=== PATIENT | male | born 2000 | race Caucasian/White ===

== ENCOUNTER 2019-12-08 19:45 | Emergency (ER) | payer OTHER ==
[~2019-12-08] VITALS: Ht 175.3 cm; Wt 59.0 kg
--- NOTE | 2019-12-08 20:39 | NUR ---
PT TO ED WITH RIGHT SIDED WEAKNESS AND PAIN EARLIER TODAY. DENIES WEAKNESS NOW, REPORTS PAIN ON RIGHT SIDE OF NECK, NEURO INTACT. WAS SENT IN BY PRIMARY [facility]ARE FOR STROKE SYMPTOMS, PT DENIES ANY SYMPTOMS EXCEPT PAIN AT THIS TIME. PT TO CT.
[2019-12-08 20:48] VITALS: BP 107/71
--- NOTE | 2019-12-08 20:51 | NUR ---
pt back from ct. pt placed on nibp and o2 monitoring. vss
--- NOTE | 2019-12-08 21:20 | NUR ---
report from josh. LEE.
== END 2019-12-08 21:32 | disposition home or self-care (01) ==
LOC: ED 21:05
DX: M25.511 Pain in right shoulder (principal); R20.2 Paresthesia of skin; R42 Dizziness and giddiness
CPT/HCPCS: 70450; 93005; 99284